=== PATIENT | male | born 1995 | race Caucasian/White ===

== ENCOUNTER 2017-04-30 12:52 | Inpatient (IN) | payer OTHER ==
[~2017-04-30] VITALS: Ht 172.7 cm; Wt 68.0 kg
[2017-05-02] MEDS ORDERED: POLY119PG PO (15:16)
[2017-05-02] MEDS ORDERED: PERCOCET 5-3251 EACH PO (15:16)
== END 2017-05-02 16:46 | disposition home or self-care (01) | DRG 342 ==
LOC: ER 12:52 → SURG 20:56
PROVIDERS: Surgery
PROC: 0DTJ4ZZ Resection of Appendix, Percutaneous Endoscopic Approach (ICD-10-PCS; principal; 2017-05-01 07:00)
DX: K35.89 Other acute appendicitis (principal); R18.8 Other ascites; K66.0 Peritoneal adhesions (postprocedural) (postinfection)

== ENCOUNTER → 2018-11-30 17:31 | Outpatient (CLI) | payer OTHER ==
[~2018-11-30 17:31] MED LIST: PERCOCET 5-3251 EACH PO; POLY119PG PO
== END | disposition home or self-care (01) ==
LOC: LAB 17:31
DX: J11.1 Influenza due to unidentified influenza virus with other respiratory manifestations (principal)